=== PATIENT | male | born 1990 | race Caucasian/White ===

== ENCOUNTER → 2016-05-02 | Outpatient (REF) | payer BC | LOC: M LAB REF 19:17 | PROVIDERS: ATTEND Physician Assistant | DX: R30.0 Dysuria (principal) ==

== ENCOUNTER → 2017-06-28 | Outpatient (REF) | payer BC, SELFPAY ==
[2017-06-29 10:23] LABS: AMPHETAMINES URINE REFLEX NEGATIVE (NEGATIVE); BARBITURATES URINE REFLEX NEGATIVE (NEGATIVE); BENZODIAZEPINES URINE REFLEX NEGATIVE (NEGATIVE); COCAINE METABOLITE URINE REFLE NEGATIVE (NEGATIVE); METHADONE URINE REFLEX NEGATIVE (NEGATIVE); OPIATES URINE REFLEX NEGATIVE (NEGATIVE); PHENCYCLIDINE URINE REFLEX NEGATIVE (NEGATIVE)
[2017-06-29 10:35] LABS: CANNABINOIDS URINE REFLEX PENDING CONFIRMATION (NEGATIVE)
== END ==
LOC: M OUTALCOH 09:23
DX: F12.10 Cannabis abuse, uncomplicated (principal)
CPT/HCPCS: G0480

== ENCOUNTER → 2018-06-15 | Outpatient (REF) | payer BC, MEDICAID, OTHER ==
[~2018-06-15] MED LIST: BACT800T5 PO; FLOM0.4C39 PO; HYDR-3715 PO; KETO10TAB PO; ONDA4TAB6 PO
[2018-06-15 22:03] LABS: INFLUENZA A AMPLIFICATION NEGATIVE (NEGATIVE); INFLUENZA B AMPLIFICATION NEGATIVE (NEGATIVE)
== END ==
LOC: M LAB REF 18:44
PROVIDERS: ATTEND Physician Assistant
DX: J11.1 Influenza due to unidentified influenza virus with other respiratory manifestations (principal)

== ENCOUNTER 2018-07-03 07:01 | Emergency (ER) | payer BC, MEDICAID, OTHER ==
[~2018-07-03] VITALS: Ht 175.3 cm; Wt 100.0 kg
[2018-07-03] MEDS ORDERED: NS 1,000 ML IV ONE (07:15)
[2018-07-03] MEDS ORDERED: ONDANSETRON 4MG/2ML VIAL (J2405) IV ONE (07:15)
[2018-07-03] MEDS ORDERED: KETOROLAC 30 MG/ML VIAL (J1885) IV ONE (07:15)
[2018-07-03 07:38] LABS: HEMATOCRIT 42.5 % (42.0-52.0); HEMOGLOBIN 14.6 g/dl (13.5-17.5); MEAN CORPUSCULAR HEMOGLOBIN 30.7 pg (27.0-33.0); MEAN CORPUSCULAR HGB CONC 34.4 g/dl (32.0-36.5); MEAN CORPUSCULAR VOLUME 89.5 fl (80.0-96.0); PLATELET COUNT, AUTOMATED 251 10^3/uL (150-450); RED BLOOD COUNT 4.75 10^6/uL (4.30-6.10); WHITE BLOOD COUNT 13.8 10^3/uL (4.0-10.0)
[2018-07-03 07:58] LABS: ALBUMIN 3.8 GM/DL (3.2-5.2); ALT/SGPT 36 U/L (12-78); AMYLASE 60 U/L (25-115); BILIRUBIN,DIRECT < 0.1 MG/DL (0.0-0.2); BILIRUBIN,TOTAL 0.3 MG/DL (0.2-1.0); BLOOD UREA NITROGEN 11 MG/DL (7-18); CALCIUM LEVEL 8.8 MG/DL (8.5-10.1); CARBON DIOXIDE LEVEL 22 MEQ/L (21-32); CHLORIDE LEVEL 109 MEQ/L (98-107); CREATININE FOR GFR 1.19 MG/DL (0.70-1.30); GLOMERULAR FILTRATION RATE > 60.0 (>60); GLUCOSE, FASTING 128 MG/DL (70-100); LIPASE 168 U/L (73-393); POTASSIUM SERUM 3.4 MEQ/L (3.5-5.1); SODIUM LEVEL 141 MEQ/L (136-145); TOTAL PROTEIN 7.6 GM/DL (6.4-8.2)
[2018-07-03 08:06] LABS: ATYPICAL LYMPH 4 % (0-5); BASOPHILS 1 % (0-4); EOSINOPHILS 1 % (0-5); LYMPHOCYTES 37 % (16-52); MONOCYTES 3 % (0-8); NEUTROPHILS 54 % (35-75); PLATELET ESTIMATE NORMAL (NORMAL)
--- NOTE | 2018-07-03 08:09 | REPVR ---
EXAM: CT Abdomen and Pelvis Without Contrast EXAM DATE/TIME: 07/03/2018 7:50 AM CLINICAL HISTORY: 28 years old, male; Pain; Abdominal pain; Flank; Left; Prior surgery; Surgery date: 6+ months; Surgery type: Appy; Additional info: Left flank pain; R/O kidney stone TECHNIQUE: Imaging protocol: Axial computed tomography images of the abdomen and pelvis without contrast. Coronal and sagittal reformatted images were created and reviewed. Radiation optimization: All CT scans at this facility use at least one of these dose optimization techniques: automated exposure control; mA and/or kV adjustment per patient size (includes targeted exams where dose is matched to clinical indication); or iterative reconstruction. COMPARISON: No relevant prior studies available. FINDINGS: Lower thorax: There is left lung base small consolidation measuring 4.3 x 3.1 cm. ABDOMEN: Liver: Normal. No mass. Gallbladder and bile ducts: Normal. No calcified stones. No ductal dilation. Pancreas: Normal. No ductal dilation. Spleen: Normal. No splenomegaly. Adrenals: Normal. No mass. Kidneys and ureters: There is a 2 mm left UVJ stone with mild proximal hydronephrosis and hydroureter. Stomach and bowel: Normal. No obstruction. No mucosal thickening. Appendix: The patient is status post appendectomy. PELVIS: Bladder: The urinary bladder is collapsed limiting its evaluation. Reproductive: Unremarkable as visualized. ABDOMEN and PELVIS: Intraperitoneal space: Normal. No free air. No significant fluid collection. Bones/joints: No acute fracture. No dislocation. Soft tissues: Unremarkable. Vasculature: Normal. No abdominal aortic aneurysm. Lymph nodes: Normal. No enlarged lymph nodes. IMPRESSION: 1. 2 mm left UVJ stone with mild proximal hydronephrosis and hydroureter. 2. Status post appendectomy. 3. 4.3 x 3.1 cm left lower lung zone irregular density likely early/small focal consolidation. Correlate clinically. Follow up is suggested. Electronically signed by: Nilesh Trimble On 07/03/2018 08:08:47 AM
[2018-07-03] MEDS ORDERED: FLOM0.4C39 PO (08:24)
[2018-07-03] MEDS ORDERED: BACT800T5 PO (08:24)
[2018-07-03] MEDS ORDERED: KETO10TAB PO (08:24)
[2018-07-03] MEDS ORDERED: ONDA4TAB6 PO (08:24)
[2018-07-03] MEDS ORDERED: HYDR-3715 PO (08:25)
[2018-07-03 08:28] VITALS: BP 124/81
--- NOTE | 2018-07-03 10:51 | ED PDOC ---
Post-Departure Follow-Up elijah sim and [facility]zin faxed formal report of ct abd/p for fu Lida Vogel MD Jul 03, 2018 10:51
== END 2018-07-03 08:35 | disposition home or self-care (01) ==
LOC: M ED 07:01
DX: N20.1 Calculus of ureter (principal); N39.0 Urinary tract infection, site not specified; F17.200 Nicotine dependence, unspecified, uncomplicated; Z79.899 Other long term (current) drug therapy
CPT/HCPCS: 36415; 74176; 80048; 80076; 81001; 82150; 83690; 85025; 99284; J1885; J2405

== ENCOUNTER 2019-01-31 06:27 | Emergency (ER) | payer BC, OTHER, SELFPAY ==
[~2019-01-31] VITALS: Ht 172.7 cm; Wt 100.0 kg
[2019-01-31 06:27] VITALS: BP 132/76
[2019-01-31] MEDS ORDERED: NAPR-837 PO (07:03)
[2019-01-31] MEDS ORDERED: BACT800T5 PO (07:03)
[2019-01-31] MEDS ORDERED: BACTRIM 160MG/800MG DS TAB PO ONE (07:15)
[2019-01-31] MEDS ORDERED: NAPROXEN 250 MG TAB PO ONE (08:00)
== END 2019-01-31 07:20 | disposition home or self-care (01) ==
LOC: M ED 06:27
DX: L08.9 Local infection of the skin and subcutaneous tissue, unspecified (principal); F17.200 Nicotine dependence, unspecified, uncomplicated

== ENCOUNTER 2019-02-01 14:06 | Emergency (ER) | payer BC, SELFPAY ==
[~2019-02-01] VITALS: Ht 172.7 cm; Wt 108.3 kg
[~2019-02-01 14:06] MED LIST changes: +NAPR-837 PO
[2019-02-01] MEDS ORDERED: LIDOCAINE W/EPINEPHRINE 1% 20ML VIAL SC ONE (14:45)
[2019-02-01 15:09] LABS: BASO # 0.1 10^3/uL (0.0-0.2); BASO % 0.7 % (0.0-1.0); EOS # 0.3 10^3/uL (0.0-0.5); EOS % 2.7 % (0.0-3.0); HEMATOCRIT 44.6 % (42.0-52.0); HEMOGLOBIN 15.2 g/dl (13.5-17.5); LYMPH # 2.7 10^3/uL (1.5-5.0); LYMPH % 27.5 % (24.0-44.0); MEAN CORPUSCULAR HEMOGLOBIN 31.3 pg (27.0-33.0); MEAN CORPUSCULAR HGB CONC 34.1 g/dl (32.0-36.5); MEAN CORPUSCULAR VOLUME 91.8 fl (80.0-96.0); MONO # 0.7 10^3/uL (0.0-0.8); MONO % 6.7 % (0.0-5.0); PLATELET COUNT, AUTOMATED 206 10^3/uL (150-450); RED BLOOD COUNT 4.86 10^6/uL (4.30-6.10); WHITE BLOOD COUNT 9.7 10^3/uL (4.0-10.0)
[2019-02-01 15:40] LABS: ALBUMIN 4.3 GM/DL (3.2-5.2); ALT/SGPT 49 U/L (12-78); BILIRUBIN,DIRECT < 0.1 MG/DL (0.0-0.2); BILIRUBIN,TOTAL 0.3 MG/DL (0.2-1.0); BLOOD UREA NITROGEN 14 MG/DL (7-18); C REACTIVE PROTEIN QUANTITATIV 0.75 MG/DL (0.00-0.30); CALCIUM LEVEL 9.1 MG/DL (8.5-10.1); CARBON DIOXIDE LEVEL 28 MEQ/L (21-32); CHLORIDE LEVEL 108 MEQ/L (98-107); CREATININE FOR GFR 1.11 MG/DL (0.70-1.30); GLOMERULAR FILTRATION RATE > 60.0 (>60); GLUCOSE, FASTING 96 MG/DL (70-100); POTASSIUM SERUM 4.1 MEQ/L (3.5-5.1); SODIUM LEVEL 139 MEQ/L (136-145); TOTAL PROTEIN 7.7 GM/DL (6.4-8.2)
[2019-02-01 15:48] LABS: ERYTHROCYTE SEDIMENTATION RATE 18 mm/hr (0-15)
[2019-02-01] MEDS ORDERED: CEFTAROLINE FOSAMIL 600 MG in D5W MINI-BAG PLUS 50 ML IV ONE (17:00)
[2019-02-01 17:51] VITALS: BP 153/74
== END 2019-02-01 18:07 | disposition home or self-care (01) ==
LOC: M ED 14:06
DX: L02.415 Cutaneous abscess of right lower limb (principal); L03.115 Cellulitis of right lower limb; F17.210 Nicotine dependence, cigarettes, uncomplicated
CPT/HCPCS: 10060; 36415; 80048; 80076; 83605; 85025; 85652; 86140; 87070; 87077; 87186; 87205; 96365; 99284; J0712

== ENCOUNTER → 2019-04-29 | Outpatient (CLI) | payer BC ==
--- NOTE | 2019-04-29 11:13 | REP ---
RIGHT FOOT COMPLETE: 04/29/2019. Clinical history: Trauma for a week. Jumped off truck bed. Findings: Four views show the distal tibia and fibula grossly intact. Subtalar joints are preserved. Calcaneus and talus are without a fracture. The talonavicular and calcaneocuboid joints appeared normal. No heel spurs are noted. Tarsal bones and their articulations were intact. Metatarsals and phalanges were grossly intact. MTP and IP joints unremarkable. Impression: 1. There is no visible or displaced fracture, avulsion, subluxation or other acute bony abnormality. Electronically Signed by Duncan Leggett MD 04/29/2019 07:56 P
== END ==
LOC: M RAD 10:22
PROVIDERS: ATTEND Physician Assistant
DX: M79.671 Pain in right foot (principal)

== ENCOUNTER → 2019-08-02 | Outpatient (CLI) | payer BC | LOC: M LABSMTC 13:06 | PROVIDERS: ATTEND Family Medicine | DX: Z11.59 Encounter for screening for other viral diseases (principal); Z20.828 Contact with and (suspected) exposure to other viral communicable diseases ==

== ENCOUNTER → 2020-01-26 | Outpatient (REF) | payer BC ==
[2020-01-26 17:27] LABS: ALBUMIN 4.4 GM/DL (3.2-5.2); ALT/SGPT 30 U/L (12-78); BILIRUBIN,TOTAL 0.5 MG/DL (0.2-1.0); BLOOD UREA NITROGEN 11 MG/DL (7-18); CALCIUM LEVEL 9.5 MG/DL (8.5-10.1); CARBON DIOXIDE LEVEL 26 MEQ/L (21-32); CHLORIDE LEVEL 105 MEQ/L (98-107); CHOLESTEROL LEVEL 203 MG/DL (<200); CHOLESTEROL RISK RATIO 5.638 (<5); FREE T4 1.08 NG/DL (0.76-1.46); GLOMERULAR FILTRATION RATE > 60.0 (>60); GLUCOSE, FASTING 81 MG/DL (70-100); HDL CHOLESTEROL 36 MG/DL (>40); LDL CHOLESTEROL 128 MG/DL (<100); NON-HDL-C 167 MG/DL; POTASSIUM SERUM 4.3 MEQ/L (3.5-5.1); SODIUM LEVEL 137 MEQ/L (136-145); TRIGLYCERIDES LEVEL 195 MG/DL (<150)
[2020-01-26 17:38] LABS: HEMOGLOBIN A1c 5.4 %
== END ==
LOC: M SFHCPLAZ 14:00
PROVIDERS: ATTEND Physician Assistant
DX: Z00.00 Encounter for general adult medical examination without abnormal findings (principal); Z13.29 Encounter for screening for other suspected endocrine disorder; Z13.1 Encounter for screening for diabetes mellitus; Z13.220 Encounter for screening for lipoid disorders

== ENCOUNTER 2020-02-24 19:09 | Emergency (ER) | payer BC ==
[~2020-02-24] VITALS: Ht 172.7 cm; Wt 106.6 kg
--- NOTE | 2020-02-24 19:58 | REPVR ---
PROCEDURE INFORMATION: Exam: US Scrotum Exam date and time: 02/24/2020 7:41 PM Age: 29 years old Clinical indication: Scrotum pain; Additional info: Left testicular pain TECHNIQUE: Imaging protocol: Real-time ultrasound of the scrotum and contents with color Doppler and image documentation. COMPARISON: No relevant prior studies available. FINDINGS: Right testicle: Normal. No mass. No torsion. Normal vascular flow. Left testicle: Normal. No mass. No torsion. Normal vascular flow. Epididymides: Normal. Scrotum: Normal. IMPRESSION: Normal scrotal ultrasound. Electronically signed by: Álvaro Osorio On 02/24/2020 19:58:28 PM
[2020-02-24] MEDS ORDERED: NAPR-837 PO (20:28)
[2020-02-24] MEDS ORDERED: NAPROXEN 250 MG TAB PO ONE (20:30)
[2020-02-24 20:51] VITALS: BP 138/87
[2020-02-24 21:11] LABS: CHLAMYDIA DNA AMPLIFICATION NEGATIVE (NEGATIVE); GC DNA AMPLIFICATION NEGATIVE (NEGATIVE)
== END 2020-02-24 20:52 | disposition home or self-care (01) ==
LOC: M ED 19:09
DX: N50.812 Left testicular pain (principal); R10.2 Pelvic and perineal pain; F17.200 Nicotine dependence, unspecified, uncomplicated

== ENCOUNTER → 2020-03-05 | Outpatient (CLI) | payer BC ==
--- NOTE | 2020-03-05 13:19 | REP ---
INDICATION: R10.30 LOWER ABDOMINAL PAIN. Pain at the site of prior appendectomy. COMPARISON: Comparison CT study July 03, 2018.. TECHNIQUE: Transabdominal scanning is performed in the area the patient's pain in the lower abdomen/suprapubic region. FINDINGS: Urinary bladder was empty prior to scanning. Unable to visualize seminal vesicles or prostate. Scanning in the area of the patient's pain in the pelvic region shows no abnormality. There is no evidence of free fluid, mass, cyst or abdominal wall defect.. IMPRESSION: Unremarkable lower abdominal sonography in the area the patient's prior appendectomy and pain. No abnormality noted.. <Electronically signed by Raoul Muñoz > 03/05/20 [id number]
== END ==
LOC: M WHC 12:27
PROVIDERS: ATTEND Physician Assistant
DX: R10.30 Lower abdominal pain, unspecified (principal); Z90.49 Acquired absence of other specified parts of digestive tract

== ENCOUNTER 2020-03-08 14:31 | Emergency (ER) | payer BC ==
[~2020-03-08] VITALS: Ht 172.7 cm; Wt 102.3 kg
[2020-03-08 14:31] VITALS: BP 133/82
== END 2020-03-08 15:01 | disposition left against medical advice (07) ==
LOC: M ED 14:31
DX: Z53.21 Procedure and treatment not carried out due to patient leaving prior to being seen by health care provider (principal)

== ENCOUNTER → 2020-09-07 | Outpatient (CLI) | payer BC | LOC: M LABSMTC 09:35 | PROVIDERS: ATTEND Anesthesiology | DX: Z01.812 Encounter for preprocedural laboratory examination (principal); Z20.822 Contact with and (suspected) exposure to COVID-19 ==

== ENCOUNTER 2020-09-12 09:47 | Day surgery (SDC) | payer BC ==
[~2020-09-12] VITALS: Ht 170.2 cm; Wt 102.5 kg
[~2020-09-12 09:47] MED LIST changes: +NS 1,000 ML IV ONE
[2020-09-12] MEDS ORDERED: propofoL 200 MG/20 ML VIAL As Ordered ONE ×2 (11:52→12:07)
[2020-09-12] MEDS ORDERED: LIDOCAINE 2% 100MG/5ML SDV (FOR ANES.) As Ordered ONE (11:52)
--- NOTE | 2020-09-12 12:27 | ROOR ---
Patient Name: Doug Monroy Procedure Date: 09/12/2020 11:59 AM Date of : 1990 Age: 30 Room: [facility] Gender: Male Note Status: Finalized Procedure: Colonoscopy Indications: Abdominal pain, groin/suprapubic Providers: Gerard Barbosa MD Referring MD: Ellie Rust Requesting Provider: Medicines: Monitored Anesthesia Care Complications: No immediate complications. Procedure: Pre-Anesthesia Assessment: - The heart rate, respiratory rate, oxygen saturations, blood pressure, adequacy of pulmonary ventilation, and response to care were monitored throughout the procedure. The Colonoscope was introduced through the anus and advanced to 15 cm into the ileum. The colonoscopy was performed without difficulty. The patient tolerated the procedure well. The quality of the bowel preparation was good. Findings: The perianal and digital rectal examinations were normal. A diminutive polyp was found in the proximal sigmoid colon. The polyp was sessile. The polyp was removed with a cold snare. Resection and retrieval were complete. Internal hemorrhoids were found during retroflexion. The hemorrhoids were moderate. Retroflexion in the right colon was performed. The exam was otherwise normal throughout the examined colon. The terminal ileum appeared normal. Impression: - One diminutive polyp in the proximal sigmoid colon, removed with a cold snare. Resected and retrieved. - Internal hemorrhoids. - The Colon is otherwise normal. - The examined portion of the ileum was normal. (- Cause for groin and bladder pain is not detemined on this exam). Recommendation: - Telephone endoscopist for pathology results in 2 weeks. - If the pathology report reveals adenomatous tissue, then repeat the colonoscopy for surveillance in 5 years. - Use fiber, for example Citrucel, Fibercon, Konsyl or Metamucil. - Return to referring physician as previously scheduled. Procedure Code(s): --- Professional --- 93879, Colonoscopy, flexible; with removal of tumor(s), polyp(s), or other lesion(s) by snare technique Diagnosis Code(s): --- Professional --- R10.9, Unspecified abdominal pain K64.8, Other hemorrhoids K63.5, Polyp of colon CPT copyright 2019 [employer]. All rights reserved. The codes documented in this report are preliminary and upon plate driller review may be revised to meet current compliance requirements. Gerard Barbosa MD Gerard Barbosa MD 09/12/2020 12:26:45 PM Electronically signed by Gerard Barbosa MD Number of Addenda: 0 Note Initiated On: 09/12/2020 11:59 AM Estimated Blood Loss: Estimated blood loss: none.
[2020-09-12 12:51] VITALS: BP 127/74
== END 2020-09-12 12:53 | disposition home or self-care (01) ==
LOC: M OPP 09:47
PROVIDERS: ATTEND Internal Medicine Gastroenterology
DX: K63.5 Polyp of colon (principal); K64.8 Other hemorrhoids; R10.84 Generalized abdominal pain; F17.210 Nicotine dependence, cigarettes, uncomplicated

== ENCOUNTER 2021-07-03 18:08 | Emergency (ER) | payer BC ==
[~2021-07-03] VITALS: Ht 172.7 cm; Wt 95.5 kg
[~2021-07-03 18:08] MED LIST changes: -NS 1,000 ML IV ONE
[2021-07-03 18:09] VITALS: BP 164/86
== END 2021-07-03 20:10 | disposition left against medical advice (07) ==
LOC: M ED 18:08
DX: Z53.29 Procedure and treatment not carried out because of patient's decision for other reasons (principal)

== ENCOUNTER → 2024-11-13 | Outpatient (CLI) | payer BC ==
[~2024-11-13] MED LIST changes: -FLOM0.4C39 PO; +ONDA-282 PO; -ONDA4TAB6 PO; +TAMS-18 PO
== END ==
LOC: M RAD 10:16
PROVIDERS: ATTEND Physician Assistant
DX: M79.5 Residual foreign body in soft tissue (principal)